=== PATIENT | female | born 1970 | race Caucasian/White ===

== ENCOUNTER 2022-08-13 16:47 | Emergency (ER) | payer BC, OTHER ==
[2022-08-13] MEDS ORDERED: Ketorolac Tromethamine 30 MG/ML VIAL ONE (18:13)
[2022-08-13] MEDS ORDERED: Morphine 4 MG/ML VIAL ONE (18:13)
[2022-08-13] MEDS ORDERED: Ondansetron PF 4 MG/2 ML Vial ONE (18:13)
[2022-08-13] MEDS ORDERED: Ondansetron ODT 4 MG TAB ONE (18:14)
[2022-08-13] MEDS ORDERED: HYDROcodone/Acetaminophen 10/325 mg Tablet ONE (18:35)
== END 2022-08-13 18:56 | disposition home or self-care (01) ==
LOC: CSHERS 16:47
DX: K04.7 Periapical abscess without sinus (principal); K02.9 Dental caries, unspecified; F17.290 Nicotine dependence, other tobacco product, uncomplicated
CPT/HCPCS: 41800; 96372; J1885; J2270; J2405; Q0162